=== PATIENT | male | born 1990 | race Caucasian/White ===

== ENCOUNTER 2024-11-20 12:02 | Inpatient (IN) | payer OTHER ==
[~2024-11-20] VITALS: Ht 167.6 cm; Wt 70.9 kg
[2024-11-20 12:43] LABS: PLATELET COUNT (AUTO) 163 K/uL (150-450); RED BLOOD CELL COUNT(AUTO) 4.76 MIL/uL (4.50-5.90); RED CELL DISTRIBUTION WIDTH 14.7 % (11.5-14.5); WHITE BLOOD COUNT (AUTO) 4.5 K/uL (4.5-11.0)
[2024-11-20 12:47] LABS: CREATININE 0.82 mg/dL (0.60-1.30); GLUCOSE,RANDOM 111 mg/dL (70-110); SODIUM SERUM 145 mmol/L (136-145); UREA NITROGEN, BLOOD 7 mg/dL (7-18)
[2024-11-20 12:48] LABS: CALCIUM, TOTAL 7.9 mg/dL (8.8-10.5); GLOMERULAR FILTR. RATE CALC > 60 mL/min (>60)
[2024-11-20 12:54] LABS: ASPARTATE AMINOTRANSFERASE 29.0 U/L (15-37); TOTAL PROTEIN, SERUM 7.5 g/dL (6.4-8.2)
[2024-11-20 13:14] LABS: ALCOHOL, BLOOD (SERUM) 408.0 mg/dL (0-10)
[2024-11-20] MEDS: LevETIRAcetam 2,000 MG in DEXTROSE 5%-WATER 250 ML IV ONE (14:26)
[2024-11-20] MEDS: MAGNESIUM SULFATE 2 GM, MVI, ADULT NO.1 WITH VIT K 10 ML, THIAMINE 100 MG, FOLIC ACID 1... IV ONE (14:57)
[2024-11-20] MEDS ORDERED: HYDROCODONE/ACETAMINOPHEN 5-325 MG TABLET PO PRN (15:00)
[2024-11-20] MEDS ORDERED: BISACODYL 10 MG RECTAL RECTAL SUPPOSITORY PR PRN (15:00)
[2024-11-20] MEDS ORDERED: MAGNESIUM HYDROXIDE SUSPENSION 30 ML UDCUP PO PRN (15:00)
[2024-11-20] MEDS ORDERED: ZOLPIDEM TARTRATE 5 MG TABLET PO PRN (15:00)
[2024-11-20] MEDS ORDERED: 1: MAGNESIUM SULFATE 2 GM, MVI, ADULT NO.1 WITH VIT K 10 ML, THIAMINE 100 MG, FOLIC ACID IV SCH (15:00)
[2024-11-20] MEDS ORDERED: FOLI-130 PO (15:15)
[2024-11-20] MEDS ORDERED: SERT-158 PO (15:15)
[2024-11-20] MEDS ORDERED: HYDR50CA7 PO (15:15)
[2024-11-20] MEDS ORDERED: FAMO20 PO (15:15)
[2024-11-20] MEDS ORDERED: LEVE250T81 PO (15:15)
[2024-11-20] MEDS ORDERED: THIA100T80 PO (15:15)
[2024-11-20 16:18] VITALS: BP 113/89; PULSE 87; RESP 19; TEMP 97.9; O2SAT 98
[2024-11-20] MEDS: HEPARIN SODIUM,PORCINE 5,000 UNITS/ML VIAL SQ SCH (17:24)
[2024-11-20] MEDS: MORPHINE SULFATE 2 MG/ML SYRINGE IVP PRN (17:34)
[2024-11-20 20:00] VITALS: BP 117/70; PULSE 94; RESP 18; TEMP 97.9; O2SAT 99
[2024-11-20] MEDS: ACETAMINOPHEN 325 MG TABLET PO PRN (20:21)
[2024-11-20] MEDS: DOCUSATE SODIUM 100 MG CAPSULE PO SCH (20:25)
[2024-11-20] MEDS: 1: MAGNESIUM SULFATE 2 GM, MVI, ADULT NO.1 WITH VIT K 10 ML, THIAMINE 100 MG, FOLIC ACID IV SCH (22:06)
[2024-11-21 00:33] LABS: APPEARANCE,URINE CLEAR (CLEAR); GLUCOSE, URINE (UA) NEGATIVE (NEGATIVE); LEUKOCYTE ESTERASE ,URINE NEGATIVE (NEGATIVE); NITRATE,URINE NEGATIVE (NEGATIVE); OCCULT BLOOD,URINE NEGATIVE (NEGATIVE); PH,URINE DRUG SCREEN 5.5 (5.0-8.0); SPECIFIC GRAVITIY, URINE 1.015 (1.003-1.030)
[2024-11-21 00:39] LABS: AMPHET/METH SCREEN,URINE NEGATIVE (NEGATIVE); BARBITURATE SCREEN, URINE NEGATIVE (NEGATIVE); CANNABINOID SCREEN,URINE NEGATIVE (NEGATIVE); COCAINE SCREEN,URINE NEGATIVE (NEGATIVE); METHADONE SCREEN, URINE NEGATIVE (NEGATIVE)
[2024-11-21 00:41] LABS: ALCOHOL, URINE DRUG SCREEN POSITIVE (NEGATIVE)
[2024-11-21] MEDS: ONDANSETRON HCL 4 MG/2 ML VIAL IVP PRN (03:51)
[2024-11-21 04:00] VITALS: BP 129/85; PULSE 93; RESP 18; TEMP 98.1; O2SAT 99
[2024-11-21] MEDS: METOCLOPRAMIDE HCL 5 MG/ML 2 ML VIAL IVP PRN (04:31)
[2024-11-21 06:13] LABS: CALCIUM, TOTAL 7.6 mg/dL (8.8-10.5); CREATININE 0.78 mg/dL (0.60-1.30); GLOMERULAR FILTR. RATE CALC > 60 mL/min (>60); GLUCOSE,RANDOM 117 mg/dL (70-110); SODIUM SERUM 138 mmol/L (136-145); UREA NITROGEN, BLOOD 6 mg/dL (7-18)
[2024-11-21 06:14] LABS: PLATELET COUNT (AUTO) 129 K/uL (150-450); RED BLOOD CELL COUNT(AUTO) 4.10 MIL/uL (4.50-5.90); RED CELL DISTRIBUTION WIDTH 14.5 % (11.5-14.5); WHITE BLOOD COUNT (AUTO) 3.0 K/uL (4.5-11.0)
[2024-11-21 08:00] VITALS: BP 133/74; PULSE 87; RESP 17; TEMP 97.6; O2SAT 98
[2024-11-21] MEDS: PANTOPRAZOLE SODIUM 40 MG DR TABLET PO SCH (09:07)
[2024-11-21 16:00] VITALS: BP 124/77; PULSE 74; RESP 16; TEMP 97.6; O2SAT 97
[2024-11-21 19:41] VITALS: BP 115/85; PULSE 98; RESP 17; TEMP 98.4; O2SAT 100
[2024-11-21] MEDS: PANTOPRAZOLE SODIUM 40 MG/VIAL IVP SCH (20:45)
[2024-11-21 23:38] VITALS: BP 127/90; PULSE 75; RESP 17; TEMP 97.9; O2SAT 98
[2024-11-22] MEDS ORDERED: SODIUM CHLORIDE 0.9% 1,000 ML ONE (00:58)
[2024-11-22 03:34] VITALS: BP 126/88; PULSE 71; RESP 18; TEMP 97.7; O2SAT 100
[2024-11-22 06:32] LABS: CALCIUM, TOTAL 8.2 mg/dL (8.8-10.5); CREATININE 0.74 mg/dL (0.60-1.30); GLOMERULAR FILTR. RATE CALC > 60 mL/min (>60); GLUCOSE,RANDOM 98 mg/dL (70-110); SODIUM SERUM 140 mmol/L (136-145); UREA NITROGEN, BLOOD 4 mg/dL (7-18)
[2024-11-22 06:40] LABS: PLATELET COUNT (AUTO) 150 K/uL (150-450); RED BLOOD CELL COUNT(AUTO) 4.36 MIL/uL (4.50-5.90); RED CELL DISTRIBUTION WIDTH 14.6 % (11.5-14.5); WHITE BLOOD COUNT (AUTO) 3.4 K/uL (4.5-11.0)
[2024-11-22 08:00] VITALS: BP 122/84; PULSE 74; RESP 16; TEMP 98.3; O2SAT 100
[2024-11-22] MEDS: THIAMINE 100 MG TABLET PO SCH (08:13)
[2024-11-22] MEDS: FOLIC ACID 1 MG TABLET PO SCH (08:15)
[2024-11-22 12:00] VITALS: BP 133/74; PULSE 78; RESP 18; TEMP 97.9; O2SAT 100
[2024-11-22 16:00] VITALS: BP 124/82; PULSE 74; RESP 17; TEMP 98.3; O2SAT 100
== END 2024-11-22 18:16 | disposition left against medical advice (07) | DRG 241 ==
LOC: EMS 12:02 → EDH 14:46 → UNDOADMIN 14:46 → 5N 15:55
PROVIDERS: ADMIT Internal Medicine; ATTEND Internal Medicine
DX: K29.20 Alcoholic gastritis without bleeding (principal); F10.129 Alcohol abuse with intoxication, unspecified; F99 Mental disorder, not otherwise specified; G40.909 Epilepsy, unspecified, not intractable, without status epilepticus; Y90.8 Blood alcohol level of 240 mg/100 ml or more; Z53.29 Procedure and treatment not carried out because of patient's decision for other reasons; Z91.010 Allergy to peanuts
CPT/HCPCS: 80048; 80076; 80164; 80307; 81003; 83735; 85025; 93005; 96365; 99285; G0480; G0482; J0712; J1644; J2270; J2405; J2470; J2765; J3411; J3475; J3490; J7030; J7060